=== PATIENT | female | born 1990 | race African-American/Black ===

== ENCOUNTER 2024-12-23 11:04 | Emergency (ER) | payer OTHER ==
[~2024-12-23] VITALS: Ht 160 cm; Wt 58.0 kg
[2024-12-23 11:11] VITALS: BP 106/54; TEMP 36.7; O2SAT 99
[2024-12-23 11:12] VITALS: PULSE 82; RESP 14; O2SAT 100
[2024-12-23] MEDS ORDERED: AMOX1TAB16 MT (12:14)
[2024-12-23] MEDS ORDERED: IBUP-2029 MT (12:14)
[2024-12-23] MEDS: IBUPROFEN 600MG TABLET PO ONE (12:14)
[2024-12-23] MEDS ORDERED: OFLO5DRO4 LEFT EAR (12:14)
== END 2024-12-23 12:21 | disposition home or self-care (01) ==
LOC: ER 11:04
DX: H66.92 Otitis media, unspecified, left ear (principal); J45.909 Unspecified asthma, uncomplicated; F41.9 Anxiety disorder, unspecified
CPT/HCPCS: 99283